=== PATIENT | female | born 1930 | race Caucasian/White ===

== ENCOUNTER → 2016-09-29 | Day surgery (SDC) | payer MEDICARE, BC ==
[~2016-09-29] VITALS: Ht 160 cm; Wt 68.9 kg
[~2016-09-29] MED LIST: ACETAMINOPHEN-1 EAC1 PO; AMITRIPTYLINE H10 MG PO; CENTRUM COMPLE1 EACH PO; FISH OIL 1,0001 EAC5 PO; HYZAAR 50-12.51 EACH PO; LASIX20 MG PO; NIASPAN1000 MG PO; NORVASC10 MG PO; OSCAL + D500 MG PO; TENORMIN25 MG PO; TYLENOL ARTHRI650 MG PO; VITAMIN B-121000 MCG PO
== END | disposition disaster alternative care site (69) ==
LOC: GPOC 09-25 15:00 → GEND 08:44
PROC: 0DB58ZX Excision of Esophagus, Via Natural or Artificial Opening Endoscopic, Diagnostic (ICD-10-PCS; principal; 2016-09-29)
DX: K44.9 Diaphragmatic hernia without obstruction or gangrene (principal); K22.10 Ulcer of esophagus without bleeding
CPT/HCPCS: J2001; J7030